=== PATIENT | male | born 1960 ===

== ENCOUNTER 2017-10-14 08:07 | Day surgery (SDC) | payer OTHER ==
[2017-09-30 08:04] VITALS: BMI 31.8
[~2017-10-14 08:07] MED LIST: Ciprofloxacin 0.3% OPTH SOLN OS SCH; Lactated Ringer's 500 ML IV ONE; Phenylephrine 2.5% Opht Soln OS SCH; Tropicamide 0.5% Opht Sol OS SCH; acetaZOLAMIDE 500 mg SR Cap PO ONE
[2017-10-14] MEDS ORDERED: Tetracaine 0.5% Ophth (OR ONLY) ONE (08:57)
[2017-10-14] MEDS ORDERED: Lidocaine 2% MPF (5 ml) Inj ONE (08:59)
[2017-10-14] MEDS ORDERED: Lactated Ringer's 1,000 ML IV ONE (08:59)
[2017-10-14] MEDS ORDERED: Propofol 10 mg/ml Inj (20 ML) ONE (10:00)
[2017-10-14] MEDS ORDERED: Lidocaine Hydrochloride 5 ML INJ ONE (10:01)
[2017-10-14] MEDS: Povidone Iodine Ophthalmic 5% Soln ONE ×3 (10:15→10:24)
[2017-10-14] MEDS: Hyaluronidase Human, Recombi 150 U/ML VIAL ONE ×2 (10:17→10:35)
[2017-10-14] MEDS: Chondroitin/Hyaluronate Opth Syringe KIT (0.55 ml-0.5 ml) IO ONE ×2 (10:19→10:36)
[2017-10-14] MEDS: Carbachol 0.01% IO ONE ×2 (10:22→10:38)
[2017-10-14] MEDS: Tobramycin/Dexamethasone OPHT OINT ONE ×2 (10:25→10:43)
[2017-10-14] MEDS ORDERED: acetaZOLAMIDE 500 mg SR Cap PO ONE (11:15)
[2017-10-14 11:22] VITALS: RESP 19
[2017-10-14 11:49] VITALS: BP 121/73; PULSE 58; TEMP 97.8; O2SAT 97
--- NOTE | 2017-10-17 05:56 | OP ---
Copied To: Estuardo Salcedo MD Attending MD: Estuardo Salcedo MD PROCEDURE DATE: 10/14/2017 PREOPERATIVE DIAGNOSIS: Cataract, left eye. POSTOPERATIVE DIAGNOSIS: Cataract, left eye. OPERATIVE PROCEDURE: Phacoemulsification, left eye, insertion of posterior chamber lens implant. SURGEON: Estuardo Salcedo MD CO-SURGEON: Dr. Quesada. ANESTHESIA TYPE: Local intravenous sedation. PROCEDURE: The patient was brought into the operating room, placed in supine position, prepped and draped in the usual fashion for ophthalmic surgery. Lid speculum was inserted, lids and exposing globe. A side-port incision was made superiorly and inferiorly with a disposable sharp blade. Anterior chamber was filled with Viscoat. A near clear corneal incision was made temporally with a 2.75-mm keratome. Capsulorrhexis was then performed with Utrata forceps. Hydrodissection carried out with balanced salt solution. Nucleus was phacoemulsified. Remaining cortical fragments were removed with a split irrigation and aspiration system. The capsular sac was filled with Provisc. A posterior chamber lens was then injected into the capsular sac and rotated into horizontal position. Provisc was aspirated out of the anterior chamber. The pupil was constricted with Miochol. The wound was found to be watertight. Topical Betadine, Timoptic, and TobraDex ointment and pressure patch were applied. The patient tolerated the procedure well. Estuardo Salcedo MD
== END 2017-10-14 11:55 | disposition home or self-care (01) ==
LOC: C.SDS 08:07
PROVIDERS: ATTEND Ophthalmology
DX: H25.12 Age-related nuclear cataract, left eye (principal)
CPT/HCPCS: 66984; 82948; J2704; J3470; J7120; V2632

== ENCOUNTER 2017-12-02 07:38 | Day surgery (SDC) | payer OTHER ==
[2017-09-30 08:55] VITALS: BMI 31.8
[~2017-12-02 07:38] MED LIST changes: +Carbachol 0.01% IO ONE; +Chondroitin/Hyaluronate Opth Syringe KIT (0.55 ml-0.5 ml) IO ONE; +Ciprofloxacin 0.3% OPTH SOLN OD SCH; -Ciprofloxacin 0.3% OPTH SOLN OS SCH; +Hyaluronidase Human, Recombi 150 U/ML VIAL ONE; +Ketorolac Tromethamine 0.5% Opth Soln (3 ml) OD SCH; +Lidocaine 2% MPF (5 ml) Inj ONE; +Phenylephrine 2.5% Opht Soln OD SCH; -Phenylephrine 2.5% Opht Soln OS SCH; +Povidone Iodine Ophthalmic 5% Soln ONE; +Tetracaine 0.5% Ophth (OR ONLY) ONE; +Tobramycin/Dexamethasone (Tobradex) Opth Sol (2.5 ml) ONE; +Tobramycin/Dexamethasone OPHT OINT ONE; +Tropicamide 0.5% Opht Sol OD SCH; -Tropicamide 0.5% Opht Sol OS SCH
[2017-12-02] MEDS ORDERED: Lactated Ringer's 500 ML IV ONE (08:35)
[2017-12-02] MEDS ORDERED: Midazolam 2 MG/2 ML VIAL ONE (09:13)
[2017-12-02] MEDS ORDERED: acetaZOLAMIDE 500 mg SR Cap PO ONE (10:50)
[2017-12-02 11:26] VITALS: BP 138/73; PULSE 51; RESP 16; TEMP 97.5; O2SAT 96
--- NOTE | 2017-12-02 22:24 | OP ---
PROCEDURE DATE: 12/02/2017 PREOPERATIVE DIAGNOSIS: Cataract, right eye. POSTOPERATIVE DIAGNOSIS: Cataract, right eye. OPERATIVE PROCEDURE: Phacoemulsification, right eye, insertion of posterior chamber lens implant. SURGEON: Estuardo Salcedo MD CO-SURGEON: Tom Quesada MD ANESTHESIA: Local IV sedation. DESCRIPTION OF PROCEDURE: The patient was brought into the operating room, placed in supine position, prepped and draped in the usual fashion for ophthalmic surgery. Lid speculum was inserted, lids and exposing globe. A side-port incision was made superiorly and inferiorly with a disposable sharp blade. Anterior chamber was filled with Viscoat. A near clear corneal incision was made temporally with a 2.75-mm keratome. Capsulorrhexis was then performed with Utrata forceps. Hydrodissection carried out with balanced salt solution. Nucleus was phacoemulsified. Remaining cortical fragments were removed with a split irrigation and aspiration system. The capsular sac was filled with Provisc. A posterior chamber lens was then injected into the capsular sac and rotated into horizontal position. Provisc was aspirated out of the anterior chamber. The pupil was constricted with Miochol. The wound was found to be watertight. Topical Betadine, Timoptic, and TobraDex ointment and pressure patch were applied. The patient tolerated the procedure well. Estuardo Salcedo MD
== END 2017-12-02 11:13 | disposition home or self-care (01) ==
LOC: C.SDS 07:38
PROVIDERS: ATTEND Ophthalmology
DX: H25.11 Age-related nuclear cataract, right eye (principal); I10 Essential (primary) hypertension; E11.9 Type 2 diabetes mellitus without complications
CPT/HCPCS: 66984; 82948; J2250; J3010; J3470; J7120; V2632